=== PATIENT | male | born 1955 | race Caucasian/White ===

== ENCOUNTER 2018-05-23 19:07 | Emergency (ER) | payer BC ==
[2018-05-23 19:38] VITALS: BP 158/84
[2018-05-23] MEDS ORDERED: DOXYcycline CAP(*) 100 MG PO ONE ×2 (20:13→20:14)
--- NOTE | 2018-05-23 20:25 | UC ---
HPI Febrile Illness - HPI Summary HPI Summary: ONSET OF FEVER, CHILLS, FATIGUE AND MALAISE LAST NIGHT. HAS BODY ACHES AND HEADACHE. TMAX 103.8 TODAY. LAST DOSE IBUPROFEN 5 HOURS AGO. PATIENT SPENDS A LOT OF TIME OUTDOORS AND HAS HAD TICK BITES IN THE PAST COUPLE OF MONTHS. - History of Current Complaint Chief Complaint: UCGeneralIllness Time Seen by Provider: 05/23/18 19:45 Hx Obtained From: Patient Onset/Duration: Started Days Ago - 1 DAY, Still Present Timing: Constant Initial Severity: Mild Current Severity: Moderate Pain Intensity: 1 Pain Scale Used: 0-10 Numeric Aggravating Factors: Nothing Alleviating Factors: Nothing Associated Signs and Symptoms: Chills, Headache, Myalgia - Allergy/Home Medications Allergies/Adverse Reactions: Allergies Allergy/AdvReac Type Severity Reaction Status Date / Time No Known Allergies Allergy Verified 05/23/18 19:38 PMH/Surg Hx/FS Hx/Imm Hx Endocrine History: Dyslipidemia Cardiovascular History: Hypertension Psychological History: Anxiety, Depression - Surgical History Surgical History: Yes Surgery Procedure, Year, and Place: CYST ON STOMACH, TONSILECTOMY, polyps removed intestinal - Family History Known Family History: Negative: Hypertension - Social History Alcohol Use: Weekly Substance Use Type: None Smoking Status (MU): Never Smoked Tobacco Review of Systems Constitutional: Fever, Chills, Fatigue Skin: Negative ENT: Negative Respiratory: Negative Cardiovascular: Negative Gastrointestinal: Negative Genitourinary: Negative Musculoskeletal: Myalgia Neurological: Headache All Other Systems Reviewed And Are Negative: Yes Physical Exam Triage Information Reviewed: Yes Appearance: Well-Appearing, No Pain Distress, Well-Nourished Vital Signs: Initial Vital Signs Temp 101.3 F 05/23/18 19:33 Pulse 113 05/23/18 19:33 Resp 16 05/23/18 19:33 BP 158/84 05/23/18 19:33 Pulse Ox 100 05/23/18 19:33 Vital Signs Reviewed: Yes Eyes: Positive: Conjunctiva Clear ENT: Positive: Hearing grossly normal, Pharynx normal, TMs normal Neck: Positive: Supple, Nontender, No Lymphadenopathy Respiratory Exam: Normal Cardiovascular: Positive: Tachycardia Abdomen Description: Positive: Soft Musculoskeletal: Positive: No Edema Neurological: Positive: Alert Psychological: Positive: Age Appropriate Behavior Skin: Negative: rashes Course/Dx - Diagnoses Clinic Provider Diagnoses: SUSPECTED LYME DISEASE Discharge - Sign-Out/Discharge Documenting (check all that apply): Discharge/Admit/Transfer - Discharge Plan Condition: Stable Disposition: HOME Prescriptions: Doxycycline Monohydrate 1 cap PO BID #40 cap Patient Education Materials: Lyme Disease (ED) Referrals: Omid Swenson MD [Primary Care Provider] - If Needed Additional Instructions: LYME DISEASE: You are suspected of having Lyme disease. Further testing may be necessary to confirm the diagnosis. Lyme disease is an infection spread through the bite of a deer tick. Symptoms include rash, fever, fatigue, joint swelling, and aches. Lyme disease can be treated with antibiotics. It is important that you take the entire course of medication. Call the physician if you develop severe headache, stiff neck, paralysis or "drooping" of either side of the face, or a worsening of any other symptom. The majority of patients with early Lyme disease who receive appropriate antibiotic therapy have complete resolution of the signs and symptoms of infection within 20 days and, in one trial, erythema migrans (the rash) and its associated symptoms resolved in a mean of five to six days. Patients who are more systemically ill at the beginning of treatment may take longer to recover. Some patients have mild subjective symptoms, such as headache, musculoskeletal pain, arthralgia, or fatigue, that persist for weeks to months after treatment. These subjective findings often resolve spontaneously, usually within six months , without further antibiotic therapy; they are not due to ongoing active Lyme disease. Almost all patients who have a satisfactory response to antibiotic therapy do well over the [place] [facility]. BE SURE TO TAKE ADEQUATE SUN PRECAUTIONS DOXYCYCLINE CAN MAKE YOU MORE SENSITIVE TO UV RAYS. TAKE MEDICINE WITH FOOD TO REDUCE RISK OF GI UPSET. LYME SEROLOGY AND BLOOD COUNT WERE DRAWN TODAY. - Billing Disposition and Condition Condition: STABLE Disposition: Home
[2018-05-24 13:39] LABS: Hematocrit 45 % (42-52); Hemoglobin 15.6 g/dl (14.0-18.0); Mean Corpuscular HGB Conc 34 g/dl (31-36); Mean Corpuscular Hemoglobin 30 pg (27-31); Mean Corpuscular Volume 86 fL (80-94); Mean Platelet Volume 7.9 um3 (7.4-10.4); Platelet Count 185 10^3/ul (150-450); Red Blood Count 5.25 10^6/ul (4.00-5.40); Red Cell Distribution Width 14 % (10.5-15); White Blood Count 7.1 10^3/ul (3.5-10.8)
[2018-05-24 14:17] LABS: ABS Basophils 0.1 10^3/ul (0-0.2); ABS Eosinophils 0 10^3/ul (0-0.6); ABS Lymphocytes 0.4 10^3/ul (1.0-4.8); ABS Monocytes 0.4 10^3/ul (0-0.8); ABS Neutrophils 6.3 10^3/ul (1.5-7.7); ABS Nucleated RBC 0 10^3/ul; Eosinophil % 0.1 % (0-6); Lymphocyte % 5.3 % (25-47); Nucleated Red Blood Cells % 0
== END 2018-05-23 20:32 | disposition home or self-care (01) ==
LOC: UCEAST 19:07
DX: I10 Essential (primary) hypertension (principal); R50.9 Fever, unspecified; R53.83 Other fatigue; R53.81 Other malaise; R51 Headache; R52 Pain, unspecified
CPT/HCPCS: 36415; 85025; 86618; 99212; A9270-GY; G0463

== ENCOUNTER 2018-11-20 08:04 | Emergency (ER) | payer BC ==
[2018-11-20 08:12] VITALS: BP 145/80
--- NOTE | 2018-11-20 09:49 | UC ---
Throat Pain/Nasal Anthony HPI - HPI Summary HPI Summary: 63 yo male presents with a sore throat for the last 2 days. He tells me that 2 days ago he developed a "bad" sore throat and fever of 101F that "broke" in the night. Yesterday his throat felt a little better and today feels better yet. No fevers since 2 days ago. 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 Has not taken anything OTC. Denies sinus symptoms, cough, rash. - History of Current Complaint Chief Complaint: UCRespiratory Stated Complaint: SORE THROAT Time Seen by Provider: 11/20/18 08:18 Hx Obtained From: Patient Onset/Duration: Gradual Onset Severity: Moderate Pain Intensity: 6 Pain Scale Used: 0-10 Numeric - Allergies/Home Medications Allergies/Adverse Reactions: Allergies Allergy/AdvReac Type Severity Reaction Status Date / Time No Known Allergies Allergy Verified 11/20/18 08:12 PMH/Surg Hx/FS Hx/Imm Hx Endocrine History: Dyslipidemia Respiratory History: Asthma - Surgical History Surgical History: Yes Surgery Procedure, Year, and Place: CYST ON STOMACH, TONSILECTOMY, polyps removed intestinal - Family History Known Family History: Negative: Hypertension - Social History Occupation: Employed Full-time Lives: With Family Alcohol Use: Occasionally Substance Use Type: None Smoking Status (MU): Never Smoked Tobacco Review of Systems All Other Systems Reviewed And Are Negative: Yes Constitutional: Positive: Negative Skin: Positive: Negative Eyes: Positive: Negative ENT: Positive: Sore Throat Respiratory: Positive: Negative Cardiovascular: Positive: Negative Neurovascular: Positive: Negative Neurological: Positive: Negative Psychological: Positive: Negative Physical Exam - Summary Physical Exam Summary: GENERAL: NAD. WDWN. No pain distress. SKIN: No rashes, sores, lesions, or open wounds. HEENT: Head: AT/NC Eyes: EOM intact. Conjunctiva clear without inflammation or discharge. Ears: Hearing grossly normal. TMs intact, no bulging, erythema, or edema. Nose: Nasal mucosa pink and moist. NTTP maxillary and frontal sinus. Throat: Posterior oropharynx without exudates, erythema, or tonsillar enlargement. Uvula midline. NECK: Supple. Nontender. No lymphadenopathy. CHEST: CTAB. No r/r/w. No accessory muscle use. Breathing comfortably and in no distress. CV: RRR. Without m/r/g. Pulses intact. Cap refill <2seconds NEURO: Alert. PSYCH: Age appropriate behavior. Triage Information Reviewed: Yes Vital Signs: Initial Vital Signs Temp 98.5 F 11/20/18 08:07 Pulse 77 11/20/18 08:07 Resp 14 11/20/18 08:07 BP 145/80 11/20/18 08:07 Pulse Ox 97 11/20/18 08:07 Laboratory Tests 11/20/18 08:20 Group A Strep Rapid Negative Vital Signs Reviewed: Yes Throat Pain/Nasal Course/Dx - Course Course Of Treatment: POC strep negative. Sore throat is improving. Suspect viral illness. - Differential Dx/Diagnosis Provider Diagnosis: Pharyngitis Discharge - Sign-Out/Discharge Documenting (check all that apply): Patient Departure All imaging exams completed and their final reports reviewed: No Studies - Discharge Plan Condition: Stable Disposition: HOME Patient Education Materials: Pharyngitis (ED) Referrals: Omid Swenson MD [Primary Care Provider] - Additional Instructions: If you develop a fever, shortness of breath, chest pain, new or worsening symptoms - please call your PCP or go to the ED. - Billing Disposition and Condition Condition: STABLE Disposition: Home
== END 2018-11-20 09:56 | disposition home or self-care (01) ==
LOC: UCEAST 08:04
DX: J02.9 Acute pharyngitis, unspecified (principal)
CPT/HCPCS: 87651; 99211; G0463

== ENCOUNTER 2019-09-27 01:17 | Emergency (ER) | payer BC, MEDICARE ==
--- NOTE | 2019-09-27 01:48 | ED ---
Dizziness - HPI Summary HPI Summary: This pt is a 64 y/o male, with hx of vertigo, [facility] c/o sudden onset of dizziness today. Pt reports he was in bed with his CPAP on when he suddenly felt nauseous. He notes he felt extremely dizzy, described as room spinning. Pt went to the bathroom and laid on the floor. Pt notes his girlfriend gave him ice for his head. Pt states he has complete hearing loss of right ear and his vertigo is active if he turns his head to the right. Denies chest pain, SOB. Pt notes his vertigo has been under control with vertigo exercises. Pt has had vertigo for 6-7 years. He states he has meclizine prescribed but he never takes it. His PCP is Dr. Swenson. PMHx includes HTN and hyperlipidemia. - History Of Current Complaint Stated Complaint: NASEAU,DIZZYNESS PER EMS Time Seen by Provider: 09/27/19 01:24 Hx Obtained From: Patient Onset/Duration: Suddenly Timing: Constant Severity Currently: Moderate Character: Room Spinning, Dizzy Aggravating Factor(s): Nothing Alleviating Factor(s): Nothing Associated Signs And Symptoms: Positive: Nausea, Vomiting, Unsteady Gait. Negative: Fever, Chills Related History: Similar Episode/Dx as - vertigo - Allergies/Home Medications Allergies/Adverse Reactions: Allergies Allergy/AdvReac Type Severity Reaction Status Date / Time No Known Allergies Allergy Verified 11/20/18 08:12 PMH/Surg Hx/FS Hx/Imm Hx Endocrine/Hematology History: Denies: Hx Diabetes Cardiovascular History: Reports: Hx Hypercholesterolemia, Hx Hypertension - MEDS Denies: Hx Congestive Heart Failure, Hx Pacemaker/ICD History: Denies: Hx Renal Disease Sensory History: Denies: Hx Hearing Aid Psychiatric History: Denies: Hx Panic Disorder - Surgical History Surgical History: Yes Surgery Procedure, Year, and Place: CYST ON STOMACH, TONSILECTOMY, polyps removed intestinal - Immunization History Date of Tetanus Vaccine: PT STATES UNSURE Date of Influenza Vaccine: NONE Infectious Disease History: No Infectious Disease History: Denies: History Other Infectious Disease, Traveled Outside the [place] in Last 30 Days - Family History Known Family History: Negative: Hypertension - Social History Alcohol Use: Occasionally Substance Use Type: Reports: None Smoking Status (MU): Never Smoked Tobacco Review of Systems Negative: Fever Negative: Chest Pain Negative: Shortness Of Breath Positive: Nausea. Negative: Vomiting Neurological: Other - POSITIVE: dizziness All Other Systems Reviewed And Are Negative: Yes Physical Exam - Summary Physical Exam Summary: Appearance: Well-appearing, Well-nourished, lying in bed comfortably Skin: Warm, dry, no obvious rash Eyes: sclera anicteric, no conjunctival pallor ENT: mucous membranes moist, pharynx appears normal Neck: Supple, nontender Respiratory: Clear to auscultation, no signs of respiratory distress Cardiovascular: Normal S1, S2. No murmurs. Normal distal pulses in tibial and radial bilaterally. Abdomen: Soft, nontender, normal active bowel sounds present Musculoskeletal: Normal, Strength/ROM Intact Neurological: A&Ox3, awake and alert, mentation is normal, speech is fluent and appropriate, extraocular movement are notable for nystagmus on regular gaze. Psychiatric: affect is normal, does not appear anxious or depressed Triage Information Reviewed: Yes Vital Signs On Initial Exam: Initial Vitals Temp Pulse Resp BP Pulse Ox 97.8 F 85 14 191/86 97 09/27/19 01:29 09/27/19 01:29 09/27/19 01:29 09/27/19 01:29 09/27/19 01:29 Vital Signs Reviewed: Yes Procedures - Sedation Patient Received Moderate/Deep Sedation with Procedure: No Diagnostics - Vital Signs Vital Signs Temp Pulse Resp BP Pulse Ox 09/27/19 01:29 97.8 F 85 14 191/86 97 - Laboratory Lab Statement: Any lab studies that have been ordered have been reviewed, and results considered in the medical decision making process. Dizzy Course/Dx - Course Assessment/Plan: Pt is a 64 y/o male, with hx of vertigo, presenting to [facility] c/ o sudden onset of dizziness today. Pt reports he was in bed with his CPAP on when he suddenly felt nauseous. He notes he felt extremely dizzy, described as room spinning. Pt states he has complete hearing loss of right ear and his vertigo is active if he turns his head to the right. Pt will be discharged home with follow up from his PCP. He was given a prescription for Compazine. Pt was instructed to return to the ED for any new or worsening symptoms. - Diagnoses Provider Diagnoses: Vertigo Discharge ED - Sign-Out/Discharge Documenting (check all that apply): Patient Departure - Discharge home - Discharge Plan Condition: Good Disposition: HOME Prescriptions: Prochlorperazine TAB* [Compazine Tab*] 10 mg PO Q6H PRN #12 tab PRN Reason: Nausea Patient Education Materials: Vertigo (ED) Referrals: Omid Swenson MD [Primary Care Provider] - If Needed - Billing Disposition and Condition Condition: GOOD Disposition: Home - Attestation Statements Document Initiated by Scribe: Yes Documenting Scribe: Kristine Roberto Provider For Whom Randy is Documenting (Include Credential): Bob Garza MD Scribe Attestation: Kristine Hua scribed for Bob Garza MD on 09/27/19 at 1824. Scribe Documentation Reviewed: Yes Provider Attestation: The documentation as recorded by the Kristine mckinley accurately reflects the service I personally performed and the decisions made by me, Bob Garza MD Status of Scribe Document: Viewed
--- OUTSIDE RECORDS SUMMARY | 2019-09-27 01:55 | XMS REPORT | Continuity of Care Document ---
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 HST 06/26/17 AHI 41.7/hour, latosha oxygen 77% Social History Type Date Description Comments Sex Unknown Tobacco Use Start: Unknown Never Smoked Cigarettes Smoking Status Reviewed: 08/18/19 Never Smoked Cigarettes ETOH Use Consumes liquor 2 times per week ETOH Use Consumes 1 glass of wine per week Tobacco Use Start: Unknown Patient has never smoked Recreational Drug Use Denies Drug Use Exercise Type/Frequency Exercises regularly Exercise Type/Frequency Ski, treadmill, hike, 3-4x per week weights Allergies, Adverse Reactions, Alerts Description No Known Drug Allergies Medications Active Medications SIG Qnty Indications Ordering Provider Date Aspirin Ec 1 tablet daily Ita Puente, 06/16/2017 81mg Tablets MD WOODS Atorvastatin Calcium 1 tablet by Ita Puente, 06/16/2017 20mg mouth daily MD Tablets Bupropion HCL ER (XL) 1 tablet daily Ita Puente, 06/16/2017 MD 300mg Tablets ER 24HR Amlodipine Besylate 1 by mouth every 30tabs Ita Puente, 06/16/2017 5mg day MD Tablets Irbesartan 1 tablet daily Ita Puente, 06/16/2017 300mg Tablets Senna-Lax take 2 tablets 60tabs Ita Puente, 06/16/2017 8.6mg Tablets by mouth at MD bedtime as needed: max 4 tablets by mouth two times a day Immunizations Description No Information Available Vital Signs Date Vital Result Comment 08/18/2019 9:11am Height 71 inches 5'11" Weight 187.12 lb Heart Rate 78 /min BP Systolic Sitting 148 mmHg Lue reg cuff BP Diastolic Sitting 84 mmHg Lue reg cuff Respiratory Rate 16 /min O2 % BldC Oximetry 96 % On Ra BMI (Body Mass Index) 26.1 kg/m2 12/23/2018 10:26am Height 71 inches 5'11" Weight 188.25 lb Heart Rate 72 /min BP Systolic Sitting 154 mmHg Lue reg cuff BP Diastolic Sitting 84 mmHg Lue reg cuff Respiratory Rate 20 /min O2 % BldC Oximetry 98 % On Ra BMI (Body Mass Index) 26.3 kg/m2 Results Description No Information Available Procedures Description No Information Available Medical Devices Description No Information Available Encounters Description No Information Available Assessments Date Code Description Provider 08/18/2019 G47.33 Obstructive sleep apnea (adult) Kiersten Chinchilla DNP, RN, [employer]BC (pediatric) Plan of Treatment Future Appointment(s):10/20/2019 9:00 am - Kiersten Chinchilla DNP, RN, [employer] MACH[employer]ER-BC at [facility]12/24/2019 8:15 am - Kiersten Chinchilla DNP , RN, [employer]-BC at [facility]08/18/2019 - Kiersten Chinchilla DNP, RN, B[employer] MACHINE FE[employer]ER-[id number] Obstructive sleep apnea (adult) (pediatric)New Orders:Sleep Study, Ordered: 08/18/19Comments:Severe. HST 06/26/17 AHI 41.7/hour , latosha oxygen 77%On CPAP auto AHI 3.8/hour, normal As discussed, if you are not eligible for Inspire can see you in a year for CPAP follow-upFollow up:2 months You can call 1 week after study for resultsRecommendations:Continue PAP device, Benefitting and compliant with treatment. Due to the expectation of travel to areas without power and problems with CPAP for full night, agree if a candidate for Inspire a reasonable treatment. Recommend in-lab study to evaluate for severity of apnea and evaluation by Dr. Hutchinson the procedure if indicated. We discussed candidate have an AHI of 65/hour or less and BMI <32, and evidence of tongue blockage of airway on sleep endoscopy. Cleaning Wipe off mask daily (baby wipe-no scent, or warm water) Clean mask, tubing, filter, and water chamber weekly in mild no scentdish soap and water. Hang to dry. If you have any sleepiness while driving you MUST avoid operating a vehicle or machinery. If you have difficulty with your equipment, or need to replace your mask or hoses, please contact your homecare agency. A weight change of 20 pounds or more may have an effecton your equipment; if you are experiencing problems please call for an appointment. If you have anyfurther questions, please call the [facility] at [phone]. Functional Status Description No Information Available Mental Status Description No Information Available Referrals Description No Information Available
[2019-09-27 03:29] VITALS: BP 160/87
== END 2019-09-27 03:28 | disposition home or self-care (01) ==
LOC: ED 01:17
DX: R42 Dizziness and giddiness (principal); E78.00 Pure hypercholesterolemia, unspecified; I10 Essential (primary) hypertension; Z79.899 Other long term (current) drug therapy
CPT/HCPCS: 99283